=== PATIENT | female | born 1935 | race Caucasian/White ===

== ENCOUNTER 2022-10-08 10:55 | Day surgery (SDC) | payer BC ==
[2022-10-01 15:20] VITALS: BMI 24.9
[2022-10-08] MEDS ORDERED: PROPOFOL 20 ML ONE (11:38)
[2022-10-08 13:06] VITALS: BP 131/61; PULSE 67; RESP 19; TEMP 98
== END 2022-10-08 13:15 | disposition home or self-care (01) ==
LOC: FASU-ENDO 10:55
PROVIDERS: ATTEND Internal Medicine Gastroenterology
PROC: 0DB78ZX Excision of Stomach, Pylorus, Via Natural or Artificial Opening Endoscopic, Diagnostic (ICD-10-PCS; 2022-10-08)
PROC: 0DB48ZX Excision of Esophagogastric Junction, Via Natural or Artificial Opening Endoscopic, Diagnostic (ICD-10-PCS; 2022-10-08)
PROC: 0DB98ZX Excision of Duodenum, Via Natural or Artificial Opening Endoscopic, Diagnostic (ICD-10-PCS; principal; 2022-10-08 12:12)
DX: K29.70 Gastritis, unspecified, without bleeding (principal)
CPT/HCPCS: 88305-TC; 88342-TC

== ENCOUNTER 2022-12-24 09:40 | Day surgery (SDC) | payer BC ==
[2022-12-18 10:25] VITALS: BMI 25.7
[2022-12-24] MEDS ORDERED: PROPOFOL 60 ML ONE (10:09)
[2022-12-24 12:16] VITALS: BP 120/65; PULSE 87; RESP 20; TEMP 97.5
== END 2022-12-24 12:16 | disposition home or self-care (01) ==
LOC: FASU-ENDO 09:40
PROVIDERS: ATTEND Internal Medicine Gastroenterology
PROC: 0DBN8ZX Excision of Sigmoid Colon, Via Natural or Artificial Opening Endoscopic, Diagnostic (ICD-10-PCS; principal; 2022-12-24 10:43)
DX: D50.9 Iron deficiency anemia, unspecified (principal); K65.1 Peritoneal abscess; K57.30 Diverticulosis of large intestine without perforation or abscess without bleeding; K63.5 Polyp of colon
CPT/HCPCS: 88305-TC

== ENCOUNTER 2023-02-04 12:06 | Day surgery (SDC) | payer BC, OTHER ==
[2023-01-29 12:25] VITALS: BMI 25.7
[2023-02-04 14:21] VITALS: RESP 18
[2023-02-04 14:22] VITALS: TEMP 98
[2023-02-04 14:23] VITALS: BP 138/68; PULSE 67
== END 2023-02-04 14:41 | disposition home or self-care (01) ==
LOC: FASU-ENDO 12:06
PROVIDERS: ATTEND Internal Medicine Gastroenterology
PROC: 0DB78ZX Excision of Stomach, Pylorus, Via Natural or Artificial Opening Endoscopic, Diagnostic (ICD-10-PCS; 2023-02-04)
PROC: 0DB48ZX Excision of Esophagogastric Junction, Via Natural or Artificial Opening Endoscopic, Diagnostic (ICD-10-PCS; 2023-02-04)
PROC: 0DB98ZX Excision of Duodenum, Via Natural or Artificial Opening Endoscopic, Diagnostic (ICD-10-PCS; principal; 2023-02-04 13:40)
DX: K31.A11 Gastric intestinal metaplasia without dysplasia, involving the antrum (principal); K29.50 Unspecified chronic gastritis without bleeding; K22.89 Other specified disease of esophagus
CPT/HCPCS: 88305-TC; 88342-TC

== ENCOUNTER 2024-06-08 09:49 | Day surgery (SDC) | payer BC, OTHER ==
[2024-06-02 12:22] VITALS: BMI 26.4
[2024-06-08 10:19] VITALS: TEMP 97.3
[2024-06-08 11:54] VITALS: BP 107/65; PULSE 72; RESP 19
== END 2024-06-08 11:56 | disposition home or self-care (01) ==
LOC: FASU-ENDO 09:49
PROVIDERS: ATTEND Internal Medicine Gastroenterology
PROC: 0DB68ZX Excision of Stomach, Via Natural or Artificial Opening Endoscopic, Diagnostic (ICD-10-PCS; 2024-06-08)
PROC: 0DB48ZX Excision of Esophagogastric Junction, Via Natural or Artificial Opening Endoscopic, Diagnostic (ICD-10-PCS; 2024-06-08)
PROC: 0DB98ZX Excision of Duodenum, Via Natural or Artificial Opening Endoscopic, Diagnostic (ICD-10-PCS; principal; 2024-06-08 11:17)
DX: Z13.810 Encounter for screening for upper gastrointestinal disorder (principal); K22.70 Barrett's esophagus without dysplasia; K29.50 Unspecified chronic gastritis without bleeding; K21.00 Gastro-esophageal reflux disease with esophagitis, without bleeding; Z87.19 Personal history of other diseases of the digestive system
CPT/HCPCS: 88305-TC; 88342-TC

== ENCOUNTER 2025-06-14 10:42 | Day surgery (SDC) | payer BC, OTHER ==
[2025-06-07 14:09] VITALS: BMI 25.4
[2025-06-14 11:09] VITALS: RESP 18
[2025-06-14 13:18] VITALS: TEMP 98
[2025-06-14 14:03] VITALS: BP 120/62; PULSE 89
== END 2025-06-14 14:00 | disposition home or self-care (01) ==
LOC: FASU-ENDO 10:42
PROVIDERS: ATTEND Internal Medicine Gastroenterology
PROC: 0DB68ZX Excision of Stomach, Via Natural or Artificial Opening Endoscopic, Diagnostic (ICD-10-PCS; 2025-06-14)
PROC: 0DB48ZX Excision of Esophagogastric Junction, Via Natural or Artificial Opening Endoscopic, Diagnostic (ICD-10-PCS; 2025-06-14)
PROC: 0DB98ZX Excision of Duodenum, Via Natural or Artificial Opening Endoscopic, Diagnostic (ICD-10-PCS; principal; 2025-06-14 12:58)
DX: K21.00 Gastro-esophageal reflux disease with esophagitis, without bleeding (principal); K31.A11 Gastric intestinal metaplasia without dysplasia, involving the antrum; K22.70 Barrett's esophagus without dysplasia; K22.89 Other specified disease of esophagus; Z13.810 Encounter for screening for upper gastrointestinal disorder; K31.89 Other diseases of stomach and duodenum
CPT/HCPCS: 88305-TC; 88342-TC